=== PATIENT | female | born 1965 | race Caucasian/White ===

== ENCOUNTER 2021-08-12 13:38 | Emergency (ER) | payer MEDICARE ==
[~2021-08-12 13:38] MED LIST: CATAFLAM50 MG PO; CIPRO500 MG PO; DOXYCYCLINE100 M2 PO; LISINOPRIL10 MG PO; PERCOCET 325 MG1 TA2 PO; PRINIVIL5 MG PO; ROBITUSSIN AC 110 ML PO; TOBRADEX 0.1%-0.5 ML OPH; ULTRAM50 MG PO; VICODIN 5/500 505 MG PO
== END 2021-08-12 15:26 | disposition left against medical advice (07) ==
LOC: ED 13:38
DX: R07.81 Pleurodynia (principal); Z53.21 Procedure and treatment not carried out due to patient leaving prior to being seen by health care provider

== ENCOUNTER → 2023-01-09 | Outpatient (CLI) | payer MEDICARE | END | disposition home or self-care (01) | LOC: US 00:30 | PROVIDERS: ATTEND Nurse Practitioner | DX: I65.23 Occlusion and stenosis of bilateral carotid arteries (principal); R09.89 Other specified symptoms and signs involving the circulatory and respiratory systems ==

== ENCOUNTER 2025-09-08 19:10 | Emergency (ER) | payer MEDICARE ==
[~2025-09-08] VITALS: Wt 102.1 kg
[~2025-09-08 19:10] MED LIST changes: +ASPIRIN ADULT L81 M2 PO; +ATORVASTATIN CA20 M1 PO; +ATORVASTATIN CA40 M1 PO; +CYCLOBENZAPRINE10 MG PO; +FAMOTIDINE40 MG PO; +FLUOXETINE HCL40 MG PO; +HYDROXYZINE HCL25 MG PO; +PROVENTIL HFA6.7 GM INH; +REXULTI0.25 MG PO; +SPIRIVA RESPIMAT4 G1 INH
[2025-09-08] MEDS ORDERED: Acetaminophen/Hydrocodone 5 MG/325 MG TABLET PO ONE (19:35)
== END 2025-09-08 21:33 | disposition home or self-care (01) ==
LOC: ED 19:10
DX: S93.691A Other sprain of right foot, initial encounter (principal); Z98.890 Other specified postprocedural states; Z87.891 Personal history of nicotine dependence; Z90.710 Acquired absence of both cervix and uterus; Z90.49 Acquired absence of other specified parts of digestive tract; Z90.89 Acquired absence of other organs; X58.XXXA Exposure to other specified factors, initial encounter; Y93.89 Activity, other specified; Y92.89 Other specified places as the place of occurrence of the external cause; Y99.8 Other external cause status